=== PATIENT | female | born 1965 | race Caucasian/White ===

== ENCOUNTER 2018-04-09 08:51 | Emergency (ER) | END 2018-04-09 12:08 | disposition home or self-care (01) ==

== ENCOUNTER 2018-04-21 14:48 | Emergency (ER) | END 2018-04-21 17:34 | disposition home or self-care (01) ==

== ENCOUNTER 2018-05-28 08:43 | Emergency (ER) | END 2018-05-28 11:41 | disposition home or self-care (01) ==

== ENCOUNTER 2018-12-12 15:06 | Emergency (ER) | payer BC ==
[~2018-12-12] VITALS: Ht 167.6 cm; Wt 95.1 kg
[~2018-12-12 15:06] MED LIST: ACET325T33 PO; BENA1TAB12 PO; DICL75TA2 PO; ERGO400T4 PO; FOL8 PO; HYDR-3612 PO; HYDR-4011 PO; LEVO137T3 PO; ONDA8TAB14 PO; RANI150C11 PO; TEMA22.5 PO; TIOT18CA IH
[2018-12-12 15:19] VITALS: BP 142/61; PULSE 90; RESP 20; Ht 167.6 cm; Wt 95.1 kg
[2018-12-12] MEDS ORDERED: FLUORESCEIN STRIP RIGHT EYE ONE (19:00)
[2018-12-12] MEDS ORDERED: TETRACAINE 0.5% 4 ML OPH RIGHT EYE ONE (19:00)
[2018-12-12] MEDS ORDERED: VALA10004 PO (19:37)
[2018-12-12] MEDS ORDERED: PRED20TA PO (19:38)
[2018-12-12] MEDS ORDERED: CARB15DR3 RIGHT EYE (19:38)
--- NOTE | 2018-12-12 19:50 | ERD ---
ER Documentation Chief Complaint Chief Complaint Complains of right eye pain x 3 days HPI Patient is a 53-year-old female with past medical history of HTN, hypothyroidism who presents the ER for concerns of right-sided eye pain times 2 days. Patient states initially she noticed a small red bump in between her eyebrows yesterday morning. Patient states her son did kill a spider in the house thus she thought she may have been bit by a spider. She states today she is noticed more redness and swelling surrounding her right eye. She states that her friend noticed that there was some redness in her right scalp that she decided to come to the ER. Patient states that area is slightly itchy however when she does touch it is painful. Patient denies any fevers or chills. Patient denies any visual changes. Patient denies any eye pain. Of note, patient states that she did have significant dental work done to the left upper and lower molars 4 days. Patient denies any new creams or lotions. ROS All systems reviewed and are negative except as per history of present illness. Medications Home Meds Active Scripts Carboxymethylcellulose Sodium* (Refresh Tears*) 15 Ml Drops, 2 DROP RIGHT EYE QID, #1 EA Prov:NUNO GOODRICH PA-C 12/12/18 Prednisone* (Prednisone*) 20 Mg Tab, 60 MG PO DAILY for 5 Days, TAB Prov:NUNO GOODRICH PA-C 12/12/18 Valacyclovir HCl (Valtrex) 1,000 Mg Tablet, 1000 MG PO TID for 7 Days, TAB Prov:NUNO GOODRICH PA-C 12/12/18 Acetaminophen* (Tylenol*) 325 Mg Tablet, 2 TAB PO Q6 PRN for PAIN AND OR ELEVATED TEMP, #30 TAB Prov:MICHELLE GRANDE PA-C 05/28/18 Ondansetron (Ondansetron Odt) 8 Mg Tab.rapdis, 8 MG PO Q6H PRN for NAUSEA AND/OR VOMITING, #30 TAB Prov:MICHELLE GRANDE PA-C 05/28/18 Hydrocodone/Acetaminophen ([place] 5-325 Tablet) 1 Each Tablet, 1 TAB PO Q6H PRN for PAIN, #5 TAB Prov:STEPHEN SAINZ PA-C 04/21/18 Reported Medications Ranitidine Hcl (Ranitidine Hcl) 150 Mg Capsule, 150 MG PO DAILY 08/27/13 Hydrocodone Bit-Acetaminophen* ([place]*) 1 Tab Tab, 1 TAB PO TID PRN 08/27/13 Temazepam* (Temazepam*) 22.5 Mg Capsule, 30 MG PO DAILY 08/27/13 Tiotropium Buckley* (Spiriva*) 18 Mcg Cap.w.dev, 18 MCG IH DAILY 08/27/13 Levothyroxine Sodium* (Levothyroxine Sodium*) 137 Mcg Tablet, 75 MCG PO DAILY 08/27/13 Benazepril-Hydrochlorothiazide (Benazepril-Hydrochlorothiazide) 1 Each Tablet, 1 EACH PO DAILY 08/27/13 Folic Acid* (Folic Acid*) 0.8 Mg Tablet, 1 MG PO DAILY 08/27/13 Diclofenac Sodium* (Diclofenac Sodium*) 75 Mg Tablet.dr, 75 MG PO DAILY 08/27/13 Ergocalciferol (Vitamin D2) 400 Unit Tablet, 1.25 UNIT PO WEEKLY 08/27/13 Allergies Allergies: Coded Allergies: Penicillins (Verified Allergy, Intermediate, 05/28/18) amoxicillin (Verified Allergy, Intermediate, 05/28/18) PMhx/Soc History of Surgery: Yes (carpal tunnel,gastric sleeve,right knee pelacement 5 mos ago) Anesthesia Reaction: No Hx Neurological Disorder: No Hx Respiratory Disorders: Yes (asthma) Hx Cardiac Disorders: Yes (htn) Hx Psychiatric Problems: No Hx Miscellaneous Medical Probl: Yes (hyperthyroidism) Hx Alcohol Use: No Hx Substance Use: No Hx Tobacco Use: No Smoking Status: Never smoker FmHx Family History: No diabetes Physical Exam Vitals Vital Signs Date Temp Pulse Resp B/P (MAP) Pulse Ox O2 O2 Flow FiO2 Time Delivery Rate 12/12/18 99.2 90 20 142/61 97 15:19 (88) Physical Exam GENERAL: Well-developed, well-nourished female. Appears in no acute distress. Speaking in full sentences HEAD: Normocephalic, atraumatic. EYES: Pupils are equally reactive bilaterally. EOMs grossly intact. No pain with EOMs. No proptosis. Right upper eyelid appears erythematous and swollen. 2-3 vesicular lesions with erythematous base noted on the patient's right frontal head and extending into her right scalp. No bleeding. No discharge. Anterior chamber is clear. No hyphema or hypopyon. EYE: Visual acuity w/ Snellen eye chart: see interventions, note patient states she does not have a right glasses on. Grant lamp exam: Small amount of uptake noted with fluorescein stain in the 9 o'clock position of the right eye. No obvious dendritic lesions or abrasions or ulcerations noted. ENT: Moist mucous membranes. No uvula deviation. No kissing tonsils. Negative Fleming sign. Right auditory canal without any obvious vesicular lesions. TM appears normal. NECK: Supple. No meningismus. Normal range of motion of the neck. LUNG: Clear to auscultation bilaterally. No rhonchi, wheezing, rales or coarse breath sounds. HEART: Regular rate and rhythm. No murmurs, rubs or gallops. EXTREMITIES: Equal pulses bilaterally. No peripheral clubbing, cyanosis or edema. No unilateral leg swelling. NEUROLOGIC: Alert and oriented. Moving all four extremities without any difficulty. Normal speech. Steady gait. SKIN: Normal color. Warm and dry. No rashes or lesions. Results 24 hrs Current Medications Medications Dose Sig/Jai Start Time Status Last (Trade) Ordered Route PRN Stop Time Admin Dose Reason Admin Tetracaine 1 drop ONCE ONCE 12/12/18 DC HCl RIGHT EYE 19:00 (Tetracaine 12/12/18 19:01 0.5% Steri-Unit Darling) Fluorescein 1 strip ONCE ONCE 12/12/18 DC Sodium RIGHT EYE 19:00 ([id number] 12/12/18 19:01 p) Procedures/MDM MEDICAL DECISION MAKING: This is a 53-year-old female presents to the ER for concerns of right upper eyelid redness and swelling times 2 days. Vital signs were reviewed. Patient w as afebrile. Patient was concerned that she may have had a spider bite. Physical exam findings do suggest concerns for early herpes zoster. Patient did have redness and a few vesicular lesions in a dermatomal fashion. Supervising physician Dr. England did also speak and examined the patient. He agreed that symptoms are concerning for herpes zoster. Patient had negative Fleming sign, no lesions in her right auditory canal or dendritic lesions on the corneal surface while examined under fluorescein stain. Patient will be started on antiviral and steroid. Patient was advised to follow-up with an eyeglass fitter tomorrow morning and to monitor symptoms very closely. Patient was advised if herpes zoster spread to her eye it could lead to visual changes. Patient understood importance of following up with eye doctor. At this time, patient presentation is most consistent with herpes zoster. Low suspicion for bacterial conjunctivitis, periorbital cellulitis, orbital cellulitis, herpes zoster ophthalmicus, allergic reaction, encephalitis. Patient was nontoxic, [id number] prior to charge. PRESCRIPTIONS: Acyclovir, prednisone, refresh eyedrops DISCHARGE: At this time, patient is stable for discharge and outpatient management. Supportive measures were discussed with patient including warm/cool compresses. Patient advised not to wear contact lenses or eye makeup. I have instructed the patient to follow-up with his/her primary care physician in 1-2 days. I have discussed with the patient the possibility of needing to see an eyeglass fitter for further workup if symptoms persist. I have instructed the patient to promptly return to the ER for any new or worsening symptoms including increased pain, fever, swelling, redness, warmth, nausea, vomiting, . The patient and/or family expressed understanding of and agreement with this plan. All questions were answered. Home care instructions were provided. Disclaimer: Inadvertent spelling and grammatical errors are likely due to EHR/dictation software use and do not reflect on the overall quality of patient care. Also, please note that the electronic time recorded on this note does not necessarily reflect the actual time of the patient encounter. Departure Diagnosis: Primary Impression: Herpes zoster Herpes zoster complications: without complications Qualified Codes: B02.9 - Zoster without complications Condition: Fair Patient Instructions: Herpes Zoster Referrals: [facility] Additional Instructions: Follow up with eyeglass fitter TOMORROW. Monitor redness/swelling, if you have any new or worsening symptoms return to the ER immediately. Avoid contact with individuals and young children. Call your primary care doctor TOMORROW for an appointment during the next 1-2 days.See the doctor sooner or return here if your condition worsens before your appointment time. NUNO GOODRICH PA-C Dec 12, 2018 19:49
== END 2018-12-12 19:48 | disposition home or self-care (01) ==
LOC: FTE 15:06
DX: B02.9 Zoster without complications (principal); J45.909 Unspecified asthma, uncomplicated; I10 Essential (primary) hypertension; Z96.651 Presence of right artificial knee joint
CPT/HCPCS: Z7502; Z7610; 99283